=== PATIENT | female | born 1935 | race Caucasian/White ===

== ENCOUNTER 2023-06-15 15:19 | Emergency (ER) | payer OTHER, MEDICAID ==
[~2023-06-15] VITALS: Ht 165.1 cm; Wt 83.5 kg
[2023-06-15 15:44] VITALS: BP_SYST 142; PULSE 91; RESP 18; TEMP 98.3; O2SAT 95
[2023-06-15 16:20] LABS: BILIRUBIN,URINE NEGATIVE (NEGATIVE); CLARITY/URINE CLEAR (CLEAR); COLOR,URINE YELLOW (YELLOW); GLUCOSE,URINE NEGATIVE (NEGATIVE); KETONES,URINE 1+ (NEGATIVE); LEUKOCYTE ESTERASE ,URINE 2+ (NEGATIVE); NITRITE, URINE NEGATIVE (NEGATIVE); PROTEIN URINE NEGATIVE (NEGATIVE); UROBILINOGEN,URINE 0.2 (0.2-1.0)
[2023-06-15 16:29] LABS: BACTERIA,URINE FEW /HPF (None Seen); BLOOD, URINE TRACE (NEGATIVE); RBC,URINE 0-3 /HPF (0-3)
[2023-06-15 16:30] LABS: MUCUS,URINE None Seen /LPF (None Seen); WBC,URINE 20-50 /HPF (0-3)
[2023-06-15 17:33] LABS: BASOPHILS # (AUTO) 0.1 K/uL (0.0-0.2); BASOPHILS % (AUTO) 0.7 % (0.0-2.0); EOSINOPHILS # (AUTO) 0.2 K/uL (0.0-0.4); EOSINOPHILS % (AUTO) 2.1 % (0.0-4.0); HEMATOCRIT 35.5 % (36-48); HEMOGLOBIN 12.2 g/dL (12.0-16.0); LYMPHOCYTES # (AUTO) 3.1 K/uL (1.0-5.5); LYMPHOCYTES % (AUTO) 35.3 % (20.5-51.5); MEAN CORPUSCULAR HEMOGLOBIN 32 pg (27-31); MEAN CORPUSCULAR HGB CONC 35 % (32-36); MEAN CORPUSCULAR VOLUME 92 fL (79.0-98.0); MONOCYTES # (AUTO) 0.5 K/uL (0.0-1.0); MONOCYTES % (AUTO) 6.1 % (1.7-9.3); NEUTROPHILS % (AUTO) 55.8 % (40.0-70.0); PLATELET COUNT (AUTO) 255 K/uL (130-430); RED BLOOD CELL COUNT(AUTO) 3.88 MIL/uL (4.2-6.2); RED CELL DISTRIBUTION WIDTH 12.6 % (9.0-15.0); WHITE BLOOD COUNT (AUTO) 8.9 K/uL (4.8-10.8)
[2023-06-15 17:40] LABS: ANION GAP 8 (5-15); CALCIUM 8.8 mg/dL (8.4-11.0); CARBON DIOXIDE 29 mmol/L (23-29); CHLORIDE 101 mmol/L (98-107); CREATININE 1.13 mg/dL (0.55-1.30); GLUCOSE 185 mg/dL (74-106); POTASSIUM 4.4 mmol/L (3.5-5.1); SODIUM SERUM 138 mmol/L (136-145); UREA NITROGEN, BLOOD 20 mg/dL (8-21)
[2023-06-15 17:41] LABS: PROTHROMBIN TIME 10.4 SECS (9.5-12.5)
[2023-06-15 17:56] LABS: ALANINE AMINOTRANSFERASE 19 U/L (12-78); ALBUMIN 3.4 g/dL (3.4-4.8); AMYLASE 48 U/L (0-100); ASPARTATE AMINOTRANSFERASE 9 U/L (10-37); BILIRUBIN,DIRECT 0.1 mg/dL (0.0-0.3); LACTATE DEHYDROGENASE 152 U/L (81-234); LIPASE 48 U/L (16-77); TOTAL BILIRUBIN 0.4 mg/dL (0.0-1.0); TOTAL PROTEIN, SERUM 7.4 g/dL (6.4-8.3)
[2023-06-15] MEDS ORDERED: NITR-85 PO (20:18)
[2023-06-15] MEDS ORDERED: TRAM50TA2 PO (20:18)
[2023-06-15 20:40] VITALS: BP_SYST 150; PULSE 80; RESP 16; TEMP 98.6; O2SAT 95
== END 2023-06-15 20:40 | disposition home or self-care (01) ==
LOC: SED 15:19
DX: D25.9 Leiomyoma of uterus, unspecified (principal); R10.30 Lower abdominal pain, unspecified; E11.9 Type 2 diabetes mellitus without complications; I10 Essential (primary) hypertension; Z88.0 Allergy status to penicillin; Z88.6 Allergy status to analgesic agent; Z79.899 Other long term (current) drug therapy
CPT/HCPCS: 36415; 76376; 80048; 80076; 81000; 81001; 81015; 82150; 83605; 83615; 83690; 84484; 85025; 85610-TC; 85730-TC; 87086; 99284

== ENCOUNTER 2023-06-27 15:12 | Emergency (ER) | payer OTHER ==
[~2023-06-27] VITALS: Ht 165.1 cm; Wt 83.5 kg
[~2023-06-27 15:12] MED LIST: NITR-85 PO; TRAM50TA2 PO
[2023-06-27 15:15] VITALS: BP_SYST 129; PULSE 95; RESP 19; TEMP 98.2; O2SAT 95
[2023-06-27] MEDS ORDERED: IBUP-1969 PO (16:22)
[2023-06-27] MEDS ORDERED: TRAM50TA2 PO (16:22)
[2023-06-27 17:10] VITALS: BP_SYST 129; PULSE 95; RESP 19; TEMP 98.2; O2SAT 95
== END 2023-06-27 17:10 | disposition home or self-care (01) ==
LOC: SED 15:12
DX: S22.31XA Fracture of one rib, right side, initial encounter for closed fracture (principal); E11.9 Type 2 diabetes mellitus without complications; I10 Essential (primary) hypertension; Z88.0 Allergy status to penicillin; Z88.6 Allergy status to analgesic agent; Z79.899 Other long term (current) drug therapy; W22.8XXA Striking against or struck by other objects, initial encounter; Y93.89 Activity, other specified; Y92.89 Other specified places as the place of occurrence of the external cause; Y99.8 Other external cause status
CPT/HCPCS: 71045; 71100; 99284